=== PATIENT | female | born 1980 ===

== ENCOUNTER 2018-02-06 15:51 | Emergency (ER) | payer SELFPAY ==
--- NOTE | 2018-02-06 15:53 | NUR.NOTE ---
Nursing Note: entered in error with wrong information from ambulance service. Tanja Nicholas.
== END 2018-02-06 15:55 | disposition other institution (70) ==
LOC: ER 15:59
PROVIDERS: Emergency Provider Physician Assistant
DX: R69 Illness, unspecified (principal)